=== PATIENT | female | born 1950 | race Caucasian/White ===

== ENCOUNTER 2019-05-31 11:01 | Outpatient (CLI) | payer MEDICARE, OTHER ==
--- NOTE | 2019-05-31 18:42 | RAD ---
LEFT FOOT THREE VIEWS: 05/31/2019 COMPARISON: View of the right foot from 06/29/2015. FINDINGS: No fracture or acute bony change is seen. No cause for a palpable knot on the plantar surface of the foot is seen. She does have an os naviculare. A little bit of cortical thickening in the third met atarsal shaft looks chronic. IMPRESSION: No acute bony finding. POS: HOME
== END 2019-05-31 11:02 | disposition home or self-care (01) ==
LOC: BURRAD 11:01
PROVIDERS: ATTEND Family Medicine
DX: M79.672 Pain in left foot (principal)